=== PATIENT | male | born 1990 | race Caucasian/White ===

== ENCOUNTER 2017-10-10 18:33 | Emergency (ER) | payer SELFPAY ==
[2017-10-10] MEDS ORDERED: LIDOCAINE 1%/EPINEPHRINE INJ 20 ML VIAL INJ ONE (19:41)
--- NOTE | 2017-10-10 20:42 | ER Document Report ---
ED Extremity Problem, Lower - General Chief Complaint: Knee Pain Stated Complaint: KNEE PAIN Time Seen by Provider: 10/10/17 19:41 TRAVEL OUTSIDE OF THE [place] IN LAST 30 DAYS: No - HPI Patient complains to provider of: Other - 26-year-old man who presents for evaluation of pain and swelling over the right knee. He notes that over the last 2 days it has worsened, it feels worse when he is walking upstairs, he says he feels a little bit unwell generally. Denies any fevers or chills specifically denies any loss of consciousness abdominal pain diarrhea constipation chest pain shortness of breath or dysuria. He denies any recent illnesses or infections, he does note that he has had rheumatoid arthritis in the past was previously on methotrexate and has stopped being treated for that sometime ago. He has never had any infections like this in the past. 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 - Related Data Allergies/Adverse Reactions: amoxicillin Allergy (Verified 10/10/17 18:37) Past Medical History - Social History Smoking Status: Current Every Day Smoker Chew tobacco use (# tins/day): No Frequency of alcohol use: None Drug Abuse: None Family History: None Patient has suicidal ideation: No Patient has homicidal ideation: No Renal/ Medical History: Denies: Hx Peritoneal Dialysis Musculoskeletal Medical History: Reports Hx Arthritis - RA Review of Systems - Review of Systems -: Yes All other systems reviewed and negative Physical Exam - Vital signs Vitals: Temp Pulse Resp BP Pulse Ox 99.2 F 89 14 137/89 H 97 10/10/17 18:39 10/10/17 18:39 10/10/17 18:39 10/10/17 18:39 10/10/17 18:39 - General General appearance: Appears well In distress: None - HEENT Head: Normocephalic Eyes: Normal Conjunctiva: Normal - Respiratory Respiratory status: No respiratory distress Chest status: Nontender Breath sounds: Normal - Cardiovascular Rhythm: Regular Heart sounds: Normal auscultation Murmur: No - Abdominal Inspection: Normal Distension: No distension Bowel sounds: Normal Tenderness: Nontender - Back Back: Normal - Extremities General upper extremity: Normal inspection General lower extremity: Other - Lower extremities are symmetric, the right knee demonstrates some swelling at the level of the patella and inferiorly, there is no obvious fluctuance, the patella is not ballotable there is no appreciable effusion in the joint. Negative anterior drawer no appreciable laxity in the right knee Course - Re-evaluation Re-evalutation: 10/11/17 04:54 26-year-old male presents with swelling in the right is got swelling inferior to the level of the patella, there is no appreciable effusion in the knee. Because his knee does demonstrate some swelling will plan for aspiration as well as culture and cell stain. Do not believe this represents a septic joint at this time as the patient does not demonstrate systemic signs of infection there is no obvious fluid in the joint space. Obtained a small amount of normal-appearing joint fluid. We will treat this patient presumptively for prepatellar bursitis. We will plan for return precautions and follow-up of culture with Gram stain. Patient agrees with current course of action. Wrote a work note, will use NSAIDs and cold compresses. - Vital Signs Vital signs: Temp Pulse Resp BP Pulse Ox 98.3 F 71 16 129/87 H 97 10/10/17 23:10 10/10/17 23:10 10/10/17 23:10 10/10/17 23:10 10/10/17 23:10 Procedures - Joint Aspiration Right Knee Joint aspiration pre-procedure: Sterile PPE donned, Chloraprep applied Anesthetic type: 1% Lidocaine w/epi mL's of anesthetic: 8 Needle size: 22 Amount/type of drainage: 5 Number of attempts: 2 Complications: No Discharge - Discharge Clinical Impression: Prepatellar bursitis Qualifiers: Laterality: right Qualified Code(s): M70.41 - Prepatellar bursitis, right knee Condition: Good Disposition: HOME, SELF-CARE Instructions: Bursitis ([facility]), Ice & Elevation ([facility]) Additional Instructions: YOu were seen for your swollen knee. You had an evaluation including an exam and tests of your joint fluid. You should be called in case of abnormal fluid results. Return for worsening swelling, pain fevers or inabilty to walk. Rest and use ice as well as an NSAID for your injury. Forms: Special Work Note
[2017-10-10 23:11] VITALS: BP 129/87
== END 2017-10-10 23:11 | disposition home or self-care (01) ==
LOC: ER 18:33
PROC: 0M9N3ZZ Drainage of Right Knee Bursa and Ligament, Percutaneous Approach (ICD-10-PCS; principal; 2017-10-10)
DX: M70.41 Prepatellar bursitis, right knee (principal); M25.561 Pain in right knee; M79.89 Other specified soft tissue disorders; F17.200 Nicotine dependence, unspecified, uncomplicated
CPT/HCPCS: 99283; 87205; 87070; 87075; 20610; J3490